=== PATIENT | male | born 1955 | race Two or more races ===

== ENCOUNTER → 2024-08-26 | Outpatient (CLI) | payer SELFPAY ==
[2024-08-26 20:47] LABS: Hemoglobin A1c 10.1 % (<=5.6)
[2024-08-28 08:09] LABS: V-Zoster IgG (Immunity) Reactive (Non Reactive)
== END | disposition home or self-care (01) ==
PROVIDERS: PCP Family Medicine; Referring Provider Family Medicine; Visit Provider Family Medicine
DX: E11.9 Type 2 diabetes mellitus without complications (principal)
CPT/HCPCS: 36415; 83036; 86787